=== PATIENT | female | born 1975 | race Asian ===

== ENCOUNTER 2017-11-20 12:28 | Day surgery (SDC) | payer OTHER ==
[2017-11-18 14:43] LABS: BASOPHILS # (AUTO) 0.05 x10^3/uL (0-0.1); BASOPHILS % (AUTO) 1 % (0-1); EOSINOPHILS # (AUTO) 0.27 x10^3/uL (0-0.4); EOSINOPHILS % (AUTO) 4 % (1-7); LYMPHOCYTES # (AUTO) 2.69 x10^3/uL (1-3.4); LYMPHOCYTES % (AUTO) 36 % (22-44); MD NO; MEAN CORPUSCULAR HEMOGLOBIN 27.8 pg (27.0-34.8); MEAN CORPUSCULAR HGB CONC 33.9 g/dL (32.4-35.8); MEAN PLATELET VOLUME 7.9 fL (7.4-10.4); MONOCYTES # (AUTO) 0.34 x10^3/uL (0.2-0.8); MONOCYTES % (AUTO) 5 % (2-9); NEUTROPHILS # (AUTO) 4.14 x10^3/uL (1.8-6.8); NEUTROPHILS % (AUTO) 55 % (42-75); PLATELET COUNT 285 x10^3/uL (130-400); RED BLOOD COUNT 3.79 x10^6/uL (3.82-5.3); RED CELL DISTRIBUTION WIDTH 17.5 % (9.6-15.2)
[2017-11-18 14:53] LABS: ALANINE AMINOTRANSFERASE 34 U/L (12-78); ALBUMIN 3.6 g/dL (3.4-5.0); ANION GAP 8 mmol/L (5-15); CALCIUM 8.6 mg/dL (8.5-10.1); CHLORIDE 103 mmol/L (98-107); CREATININE 0.83 mg/dL (0.55-1.02)
[2017-11-18 14:57] LABS: ALKALINE PHOSPHATASE 73 U/L (45-117); BILIRUBIN,TOTAL 0.5 mg/dL (0.2-1.0); TOTAL PROTEIN 7.7 g/dL (6.4-8.2)
[2017-11-18 15:23] LABS: CULTURE INDICATED? NO
[2017-11-18 15:24] LABS: MICROSCOPIC INDICATED
[~2017-11-20] VITALS: Ht 165.1 cm; Wt 78.2 kg
[~2017-11-20 12:28] MED LIST: CALC600T23 PO; CHOL500015 PO; FERR-51 PO; LEVO75TA5 PO
[2017-11-20 13:08] VITALS: BP 111/80
[2017-11-20] MEDS ORDERED: hydrALAzine 20 MG/ML, 1ML IV PRN (13:30)
[2017-11-20] MEDS ORDERED: HYDROmorphone 1 MG/ML, 1ML IV PRN (13:30)
[2017-11-20] MEDS ORDERED: OXYcodone 5 MG/5 ML ORAL.SOL UDC PO PRN (13:30)
[2017-11-20] MEDS ORDERED: LACTATED RINGERS 1,000 ML IV SCH (13:30)
[2017-11-20] MEDS ORDERED: METOCLOPRAMIDE 5 MG/ML, 2ML IV PRN (13:30)
[2017-11-20] MEDS ORDERED: MEPERIDINE/PF 25MG/0.5ML IVPush PRN (13:30)
[2017-11-20] MEDS ORDERED: ONDANSETRON 2MG/ML, 2ML IVPush PRN (13:30)
[2017-11-20] MEDS ORDERED: FENTANYL PF 100 MCG/2ML IV PRN (13:30)
[2017-11-20] MEDS ORDERED: LABETALOL 5MG/ML, 20ML IV PRN (13:30)
[2017-11-20] MEDS ORDERED: morphine SULFATE 10 MG/ML, 1ML IV PRN (13:30)
[2017-11-20] MEDS ORDERED: PROMETHAZINE 12.5 MG SUPP PR PRN (13:30)
[2017-11-20] MEDS ORDERED: MIDAZOLAM 1 MG/ML, 2ML ONE (13:43)
[2017-11-20] MEDS ORDERED: FENTANYL PF 100 MCG/2ML ONE (13:43)
[2017-11-20] MEDS ORDERED: OXYcodone IR 5MG TABLET ONE (14:11)
[2017-11-20] MEDS ORDERED: ACETAMINOPHEN 500 MG TABLET ONE (14:11)
[2017-11-20] MEDS ORDERED: FAMOTIDINE 20 MG TABLET ONE (14:11)
[2017-11-20] MEDS ORDERED: ONDANSETRON ODT 8 MG ONE (14:12)
[2017-11-20] MEDS ORDERED: GABAPENTIN 300 MG CAPSULE ONE (14:12)
[2017-11-20] MEDS ORDERED: DEXAMETHASONE 4 MG/ML, 1ML ONE (14:17)
[2017-11-20] MEDS ORDERED: BUPIVACAINE 0.25% ONE (14:22)
[2017-11-20] MEDS ORDERED: EPINEPHRINE 1 MG/ML, 1ML ONE (14:22)
[2017-11-20] MEDS ORDERED: SILVER NITRATE STICK TP ONE ×2 (14:22→14:58)
[2017-11-20] MEDS ORDERED: ONDANSETRON ODT 8 MG PO ONE (14:30)
[2017-11-20] MEDS ORDERED: ACETAMINOPHEN 500 MG TABLET PO ONE (14:30)
[2017-11-20] MEDS ORDERED: OXYcodone IR 5MG TABLET PO ONE (14:30)
[2017-11-20] MEDS ORDERED: FAMOTIDINE 20 MG TABLET PO ONE (14:30)
[2017-11-20] MEDS ORDERED: GABAPENTIN 300 MG CAPSULE PO ONE (14:30)
[2017-11-20] MEDS ORDERED: PROPOFOL 10 MG/ML, 20ML ONE (14:35)
[2017-11-20] MEDS ORDERED: ROCURONIUM 10MG/ML,5ML ONE (14:55)
== END 2017-11-20 17:30 ==
LOC: OUT 12:28
PROVIDERS: ATTEND Obstetrics & Gynecology Gynecology
DX: N84.0 Polyp of corpus uteri (principal); N93.9 Abnormal uterine and vaginal bleeding, unspecified
CPT/HCPCS: 36415; 58558; 80053; 81001; 84703; 85025; 86850; 86900; 88305; J1100; J2250; J2704; J3010; J7120; Q0162; J0171; J3490

== ENCOUNTER 2020-11-16 09:42 | Outpatient (CLI) | payer OTHER ==
[2020-11-16 10:09] LABS: BASOPHILS % (AUTO) 1 % (0-1); EOSINOPHILS % (AUTO) 4 % (1-7); LYMPHOCYTES % (AUTO) 40 % (22-44); MEAN CORPUSCULAR HEMOGLOBIN 23.1 pg (27.0-34.8); MEAN CORPUSCULAR HGB CONC 32.8 g/dL (32.4-35.8); MEAN PLATELET VOLUME 7.8 fL (7.4-10.4); MONOCYTES % (AUTO) 4 % (2-9); NEUTROPHILS % (AUTO) 51 % (42-75); PLATELET COUNT 318 x10^3/uL (130-400); RED BLOOD COUNT 4.56 x10^6/uL (3.82-5.3); RED CELL DISTRIBUTION WIDTH 17.7 % (9.6-15.2)
[2020-11-16 10:19] LABS: ALANINE AMINOTRANSFERASE 20 U/L (12-78); ALBUMIN 3.7 g/dL (3.4-5.0); ANION GAP 5 mmol/L (5-15); CALCIUM 8.4 mg/dL (8.5-10.1); CHLORIDE 109 mmol/L (98-107); CHOLESTEROL, TOTAL 140 mg/dL (140-239); CREATININE 0.86 mg/dL (0.55-1.02); TRIGLYCERIDES 81 mg/dL (50-200); VLDL CHOLESTEROL 16 mg/dL (0-25)
[2020-11-16 10:29] LABS: ALKALINE PHOSPHATASE 84 U/L (45-117); BILIRUBIN,TOTAL 0.4 mg/dL (0.2-1.0); CHOL/HDL RATIO 3.4; HDL CHOL % 29 % (28-40); HDL CHOLESTEROL (DIRECT) 41 mg/dL (40-60); LDL CHOLESTEROL,CALCULATED 83 mg/dL (54-169); TOTAL PROTEIN 7.4 g/dL (6.4-8.2)
== END 2020-11-16 23:59 | disposition home or self-care (01) ==
LOC: LAB 09:42
PROVIDERS: ATTEND Internal Medicine
DX: I10 Essential (primary) hypertension (principal); E78.5 Hyperlipidemia, unspecified; E03.9 Hypothyroidism, unspecified
CPT/HCPCS: 36415; 80053; 80061; 84443; 85025

== ENCOUNTER 2021-03-16 11:11 | Outpatient (CLI) | payer OTHER ==
[2021-03-16 11:58] LABS: BASOPHILS % (AUTO) 1 % (0-1); EOSINOPHILS % (AUTO) 5 % (1-7); LYMPHOCYTES % (AUTO) 32 % (22-44); MEAN CORPUSCULAR HEMOGLOBIN 25.7 pg (27.0-34.8); MEAN CORPUSCULAR HGB CONC 33.5 g/dL (32.4-35.8); MEAN PLATELET VOLUME 7.9 fL (7.4-10.4); MONOCYTES % (AUTO) 4 % (2-9); NEUTROPHILS % (AUTO) 57 % (42-75); PLATELET COUNT 304 x10^3/uL (130-400); RED BLOOD COUNT 5.07 x10^6/uL (3.82-5.3); RED CELL DISTRIBUTION WIDTH 16.2 % (9.6-15.2)
[2021-03-16 12:05] LABS: ALBUMIN 4.1 g/dL (3.4-5.0); ANION GAP 10 mmol/L (5-15); CALCIUM 9.5 mg/dL (8.5-10.1); CHLORIDE 108 mmol/L (98-107); CHOLESTEROL, TOTAL 157 mg/dL (140-239); TRIGLYCERIDES 101 mg/dL (50-200); VLDL CHOLESTEROL 20 mg/dL (0-25)
[2021-03-16 12:27] LABS: % IRON SATURATION 8 % (20-55); ALANINE AMINOTRANSFERASE 28 U/L (12-78); ALKALINE PHOSPHATASE 88 U/L (45-117); BILIRUBIN,TOTAL 0.7 mg/dL (0.2-1.0); CHOL/HDL RATIO 3.7; CREATININE 0.92 mg/dL (0.55-1.02); FOLATE LEVEL 6.6 ng/mL (3.1-17.5); HDL CHOL % 27 % (28-40); HDL CHOLESTEROL (DIRECT) 43 mg/dL (40-60); IRON LEVEL 40 mcg/dL (50-170); LDL CHOLESTEROL,CALCULATED 94 mg/dL (54-169); LDL/HDL RATIO 2.2 (0.5-3.0); TOTAL IRON BINDING CAPACITY 475 mcg/dL (250-450); TOTAL PROTEIN 8.1 g/dL (6.4-8.2)
== END 2021-03-16 23:59 | disposition home or self-care (01) ==
LOC: LAB 11:11
PROVIDERS: ATTEND Family Medicine
DX: D51.3 Other dietary vitamin B12 deficiency anemia (principal); E03.9 Hypothyroidism, unspecified; D64.9 Anemia, unspecified; E55.9 Vitamin D deficiency, unspecified; E78.1 Pure hyperglyceridemia
CPT/HCPCS: 36415; 80053; 80061; 82306; 82607; 82746; 83540; 83550; 83970; 84443; 84479; 85025